=== PATIENT | male | born 1940 | race Hispanic/Latino ===

== ENCOUNTER 2016-09-20 07:37 | Day surgery (SDC) | payer BC ==
[2016-09-20] MEDS ORDERED: NACL 0.9% 1000 ML 1,000 ML IV SCH (08:00)
[2016-09-20] MEDS ORDERED: PEPCID PO NR (08:00)
[2016-09-20] MEDS ORDERED: DILAUDID IV PRN (09:06)
--- NOTE | 2016-09-20 09:12 | Anesthesia Consultation ---
Anesthesia Consult and Med Hx Date of service: 09/20/16 - Airway Anesthetic Teeth Evaluation: Good (DENTAL IMPLANT AT BOTTOM) ROM Head & Neck: Adequate Mental/Hyoid Distance: Adequate Mallampati Class: Class II Intubation Access Assessment: Probably Good - Pulmonary Exam CTA: Yes - Cardiac Exam Cardiac Exam: RRR - Pre-Operative Health Status ASA Pre-Surgery Classification: ASA3 Proposed Anesthetic Plan: General - Pulmonary Hx Smoking: No Hx Sleep Apnea: No (PITA PRE SCREEN HIGH RISK- STATES NEEDS SLEEP STUDY) - Cardiovascular System Hx Hypertension: No (DENIES HYPERTENSION, STATES HE TAKES METOPROLOL FOR HEART RATE) Hx Heart Attack/AMI: Yes (2006, HAD HEART CATH, NO STENT NEEDED) Hx Percutaneous Transluminal Coronary Angioplasty (PTCA): No Hx Cardia Arrhythmia: Yes (AFIB, S/P CARDIOVERSION) Hx Peripheral Vascular Disease: Yes (LEFT LEG) - Central Nervous System Hx Seizures: No CVA: No - Gastrointestinal Hx Gastroesophageal Reflux Disease: Yes - Endocrine Hx Renal Disease: No Hx Cirrhosis: No Hx Hypothyroidism: No - Other Systems Hx Cancer: Yes (PROSTATE 2002) - Additional Comments Anesthesia Medical History Comments: OFF PRADAXA X 3 DAYS
[2016-09-20] MEDS ORDERED: ANCEF/STERILE WATER 2 GM/20 ML 2 GM/20 ML SYRINGE IV NR (09:30)
--- NOTE | 2016-09-20 09:38 | Anesthesia Day of Surgery ---
Anesthesia Day of Surgery - Day of Surgery Patient Examined: Yes Patient H&P Reviewed: Yes Patient is NPO: Yes Beta Blockers: Yes
[2016-09-20] MEDS ORDERED: ZOFRAN IV PRN (10:00)
[2016-09-20 10:06] LABS: Hematocrit 38.5 % (35.5-45.6); Hemoglobin 12.5 gm/dl (11.8-15.2)
[2016-09-20] MEDS ORDERED: SUBLIMAZE ONE (10:16)
[2016-09-20] MEDS ORDERED: ZOFRAN ONE (10:16)
[2016-09-20] MEDS ORDERED: XYLOCAINE MPF 2% ONE (10:16)
[2016-09-20] MEDS ORDERED: DIPRIVAN 10 MG/ML IV ONE (10:16)
[2016-09-20] MEDS ORDERED: DECADRON ONE (10:16)
[2016-09-20 10:24] LABS: INR 1.2 (0.87-1.13); Partial Thromboplastin Time 31.9 Sec. (24.2-36.6)
[2016-09-20] MEDS ORDERED: NEO SYNEPHRINE/NS Syringe(OR USE) IV ONE (10:30)
[2016-09-20] MEDS ORDERED: ROBINUL ONE ×2 (10:34→11:15)
[2016-09-20] MEDS ORDERED: ePHEDrine SULFATE ONE (11:12)
[2016-09-20] MEDS ORDERED: OMNIPAQUE 300 MG/50 ML (CATH LAB) IV ONE (11:39)
[2016-09-20] MEDS ORDERED: WATER FOR IRRIG STERILE IR ONE ×2 (11:39→11:40)
[2016-09-20] MEDS ORDERED: NACL 0.9% 1000 ML 1,000 ML ONE (11:40)
[2016-09-20] MEDS ORDERED: LASIX ONE (11:45)
--- NOTE | 2016-09-20 11:53 | Post Operative Note ---
Date of procedure: 09/20/16 Pre-op diagnosis: hematuria Post-op diagnosis: same Findings: bladder lesion with clot Procedure: cysto rpg excision llesion Anesthesia: GETA Surgeon: NEENA PAREDES Estimated blood loss: minimal Pathology: list (bladder) Specimen disposition: to lab Condition: stable Disposition: PACU
--- NOTE | 2016-09-20 11:55 | Discharge Summary ---
Short Stay Discharge Plan Activity: other (no straining ) Weight Bearing Status: Full Weight Bearing Diet: low fat, low cholesterol, low salt Special Instructions: other (inc fluids ) Durable Medical Equipment Needed Upon Discharge: other (teach kilpatrick care ) Follow up with: NEENA PAREDES MD [Staff Physician] - 7 Days
--- NOTE | 2016-09-20 12:40 | Post Anesthesia Evaluation ---
- Post Anesthesia Evaluation Patient Participated: Yes Airway Patent: Yes Stable Respiratory Function: Yes Nausea/Vomiting: No Temp > 96.8F: Yes Pain Manageable: Yes Adequeate Hydration: Yes Anesthesia Complications: No Block Receding Appropriately: Not Applicable Patient on Ventilator: No
--- NOTE | 2016-09-20 13:29 | Cat Scan Report ---
CT scan of abdomen and pelvis without IV contrast: History: Hematuria. Findings: Normal lung bases. No pleural pericardial effusion. Normal spleen pancreas and gallbladder. Calcifications of the liver from calcified granuloma. Normal adrenals. There is 2 mm is noted in the upper pole of right kidney and 2 mm calculus at the lower pole with 1 mm calculus at the upper and lower pole. Nonobstructing calculi. There is 4 mm calculus lower pole left kidney and a 2 mm calculus lower pole left kidney and 2 mm calculus mid pole left kidney. Nonobstructing calculi. No mass. There is a catheter noted in the bladder with air within the bladder. Decompressed urinary bladder. Prostatic calculi/calcification. No free intraperitoneal fluid or. No evidence of adenopathy. Calcified abdominal aorta without aneurysm. Gaseous colon with moderate volume stool in colon. Diverticulosis colon. No evidence of appendicitis or diverticulitis. Impression: Diverticulosis colon. Nonobstructing calculi kidneys. Prostatic calcifications/calculi.
--- NOTE | 2016-09-20 14:22 | Operative Report ---
PREOPERATIVE DIAGNOSIS: Gross hematuria. POSTOPERATIVE DIAGNOSES: Mild prostatic enlargement with a lesion with a clot around it posterior wall of the bladder. PROCEDURE: Cystoscopy, retrograde and excision of lesion with cauterization infiltration. SURGEON: Ehsan Lanza MD ANESTHESIA: General. FINDINGS: The gentleman who presents with hematuria. He never went for CT scans. He will get that in recovery. He now presents for cystoscopy and continued on and off bleeding, no significant clots. DESCRIPTION OF PROCEDURE: The patient brought to the operating room and placed on the operating table. Following induction of anesthesia, placed in lithotomy position, prepped and draped in usual sterile fashion. Cystourethroscopy showed a slightly elevated bladder neck. The prostate was slightly injected. Bladder was entered and posterior wall had a clot over a lesion which looked to be cystic. It may have been a little deeper than initially suspected right over trabeculated portion of the bladder. Retrograde showed good filling, good drainage with no persistent filling defects. The lesion was excised and we made sure we got the entire lesion because it may have been deeper than we could see consistent with some clot adherent to it. The patient tolerated the procedure well. The area was cauterized. A 20-Baron was placed. Urine was clear and irrigated, brought to recovery in stable condition. Family notified. JOB# [id number] DELTA/AMELIA
--- NOTE | 2016-09-20 14:31 | Fluoroscopy Report ---
RETROGRADE PYELOGRAM: History: Gross hematuria. There is adequate filling of the ureters and intrarenal collecting systems with no filling defects or anatomic abnormalities identified. Impression: Normal exam.
[2016-09-20 15:03] VITALS: BP 159/82
== END 2016-09-20 14:50 | disposition home or self-care (01) ==
LOC: OR 07:37
PROVIDERS: ATTEND Urology
DX: N30.21 Other chronic cystitis with hematuria (principal); N40.0 Benign prostatic hyperplasia without lower urinary tract symptoms; N32.89 Other specified disorders of bladder; I48.91 Unspecified atrial fibrillation; K21.9 Gastro-esophageal reflux disease without esophagitis; Z86.79 Personal history of other diseases of the circulatory system; Z85.46 Personal history of malignant neoplasm of prostate; Z98.890 Other specified postprocedural states
CPT/HCPCS: 36415; 52224; 74176; 74420; 85014; 85018; 85610; 85730; 88305; A4217; C1758; J0690; J1100; J1940; J2370; J2405; J2704; J3010; J7030; Q9967